=== PATIENT | female | born 1960 | race Caucasian/White ===

== ENCOUNTER 2016-05-25 08:38 | Emergency (ER) | payer BC ==
[2016-05-25 09:03] VITALS: PULSE 76; O2SAT 99
[2016-05-25] MEDS ORDERED: Phenergan 25 MG INJ IM ONE (09:12)
[2016-05-25] MEDS ORDERED: DEMEROL 75 MG IM ONE (09:12)
--- NOTE | 2016-05-25 09:18 | ERPHSYRPT ---
- History of Present Illness Time Seen by Provider: 05/25/16 09:00 Source: patient Exam Limitations: clinical condition Patient Subjective Stated Complaint: lt leg pain Triage Nursing Assessment: lt leg pain for 11 days. unsure of injury although she had her 'back doug when she stepped off a curb during her walk'. states pain is in her mid lt leg and radiates down to below knee and up to lt groin and around to lt lower back. no swelling or bruising. states 'feels like nerve pain' scheduled for PT tomorrow. pedal pulses present Physician History: PATIENT WITH HISTORY OF CHRONIC PAIN, POST LUMBAR LAMINECTOMY IN THE , HAS INCREASING PAIN DISCOMFORT PAST 3 DAYS WITH RADIATION OF LOWER BACK DOWN THE FRONT OF LEFT THIGH. DENIES WEAKNESS IN EXTREMITIES , LOSS OF BOWEL OR BLADDER FUNCTION. Timing/Duration: day(s) Method of Injury: unknown Quality: sharp Back Pain Location: lumbar spine Back Pain Radiation: upper legs Severity of Pain-Max: moderate Severity of Pain-Current: moderate Modifying Factors: Improves With: movement Associated Symptoms: other (NUMBNESS LEFT THIGH) Previous symptoms: same symptoms as today Allergies/Adverse Reactions: morphine Adverse Reaction (Verified 05/25/16 09:03) Home Medications: Levothyroxine Sodium 75 Mcg [Synthroid 75 Mcg] 75 mcg PO DAILY 05/25/16 [ History] Lisinopril 10 mg [Zestril 10 MG] 10 mg PO DAILY 05/25/16 [History] Methocarbamol [Robaxin-750] 750 mg PO DAILY 05/25/16 [History] Omeprazole [Prilosec] 40 mg PO DAILY 05/25/16 [History] Rosuvastatin Calcium [Crestor] 20 mg PO HS 05/25/16 [History] Venlafaxine HCl ER 37.5 mg [Effexor ER 37.5 MG] 37.5 mg PO DAILY 05/25/16 [History] Verapamil HCl [Verapamil ER] 180 mg PO HS 05/25/16 [History] Hx Tetanus, Diphtheria Vaccination/Date Given: Yes Hx Influenza Vaccination/Date Given: Yes Hx Pneumococcal Vaccination/Date Given: No Immunizations Up to Date: Yes - Review of Systems Constitutional: No Fever, No Chills Eyes: No Symptoms Ears, Nose, & Throat: No Symptoms Respiratory: No Cough, No Dyspnea Cardiac: No Chest Pain, No Edema, No Syncope Abdominal/Gastrointestinal: Appetite Changes, No Abdominal Pain, No Nausea, No Vomiting, No Diarrhea Genitourinary Symptoms: No Dysuria Musculoskeletal: Back Pain, No Neck Pain Skin: No Rash Neurological: Parasthesia, No Dizziness, No Focal Weakness, No Sensory Changes Psychological: No Symptoms Endocrine: No Symptoms All Other Systems: Reviewed and Negative - Past Medical History Pertinent Past Medical History: Yes Cardiac History: High Cholesterol, Hypertension Endocrine Medical History: Diabetes Type II GI Medical History: GERD Female Reproductive Disorders: Fibroids Other Medical History: 1994--misscarriage - Past Surgical History Past Surgical History: Yes Other Surgical History: mulitple abd surgeries for fibroid tumors. lami. tonsils - Social History Smoking Status: Never smoker Exposure to second hand smoke: No Drug Use: none Patient Lives Alone: No - Nursing Vital Signs Temperature: 97.9 F Temperature Source: Oral Pulse Rate: 76 Respiratory Rate: 18 Pain Intensity: 8 - Physical Exam General Appearance: no apparent distress, alert Eye Exam: PERRL/EOMI, eyes nml inspection Neck Exam: normal inspection, non-tender, supple, full range of motion, No meningismus, No midline tenderness Respiratory Exam: normal breath sounds, lungs clear, No respiratory distress Cardiovascular Exam: regular rate/rhythm, normal heart sounds Gastrointestinal Exam: soft, No tenderness, No mass Back Exam: normal inspection, vertebral tenderness (LEFT PARASPINAL LUMBAR TENDERNESS L1-L5), decreased range of motion Extremity Exam: normal inspection, normal range of motion, No calf tenderness, No pedal edema Peripheral Pulses: carotid (R): 2+, carotid (L): 2+, femoral (R): 2+, femoral (L ): 2+, dorsalis-pedis (R): 2+, dorsalis-pedis (L): 2+ Neurologic Exam: alert, oriented x 3, cooperative, 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, normal mood/affect, nml station & gait, sensation nml, No motor deficits Skin Exam: normal color, warm, dry, No rash SpO2 Interpretation: normal SpO2: 99 Oxygen Delivery: Room Air Ordered Tests: Active Orders 24 hr Category Date Time Status Clean Catch Urine Specimen STAT Care 05/25/16 09:10 Active UA Stat Lab 05/25/16 09:32 Ordered Medication Summary Discontinued Medications Generic Name Dose Route Start Last Admin Trade Name Kirsten PRN Reason Stop Dose Admin Meperidine HCl 75 mg 05/25/16 09:12 05/25/16 09:33 Demerol 75 Mg IM 05/25/16 09:13 75 mg STAT ONE Administration Meperidine HCl Confirm 05/25/16 09:32 Demerol 50 Mg Administered 05/25/16 09:33 Dose 100 mg .ROUTE .STK-MED ONE Promethazine HCl 25 mg 05/25/16 09:12 05/25/16 09:35 Phenergan 25 Mg Inj IM 05/25/16 09:13 25 mg STAT ONE Administration Promethazine HCl Confirm 05/25/16 09:31 Phenergan 25 Mg Inj Administered 05/25/16 09:32 Dose 25 mg .ROUTE .STK-MED ONE - Progress Progress: improved Progress Note: 05/25/16 09:18 DEMEROL 75MG/PHENERGAN 25MG IM Counseled pt/family regarding: lab results, diagnosis, need for follow-up - Departure Time of Disposition: 10:10 Departure Disposition: Home Clinical Impression: CHRONIC BACK PAIN/SCIATICA Condition: Stable Critical Care Time: No Referrals: DINA SPRAGUE [Primary Care Provider] - Additional Instructions: NORCO 10/325 EVERY 4 HOURS FOR PAIN NEEDED. VALIUM 5MG TWICE DAILY FOR MUSCLE SPASMS. CONSULT YOUR FAMILY PHYSICIAN FOR EVALUATION IN 1 WEEK. Prescriptions: Hydrocodone/APAP 10/325 mg [[place] 10/325 MG Tablet] 1 tab PO Q4H PRN PRN # 15 tablet PRN Reason: Pain Diazepam 5 mg [Valium 5 MG] 5 mg PO BIDPRN PRN #10 tablet PRN Reason: Muscle Spasms
[2016-05-25] MEDS ORDERED: Phenergan 25 MG INJ ONE (09:31)
[2016-05-25] MEDS ORDERED: DEMEROL 50 MG ONE (09:32)
[2016-05-25 10:04] LABS: Collection Type CLEAN CATCH
[2016-05-25 10:05] LABS: COMPLETE URINE MICROSCOPIC? YES
[2016-05-25 10:09] VITALS: BP 140/62
[2016-05-25 10:27] LABS: Bacteria FEW /HPF (NEGATIVE); Epithelial Cells FEW /HPF (FEW)
== END 2016-05-25 10:25 | disposition home or self-care (01) ==
LOC: ED 08:38
DX: M54.9 Dorsalgia, unspecified (principal); G89.29 Other chronic pain; M54.30 Sciatica, unspecified side; E78.00 Pure hypercholesterolemia, unspecified; I10 Essential (primary) hypertension; E11.8 Type 2 diabetes mellitus with unspecified complications; Z79.899 Other long term (current) drug therapy
CPT/HCPCS: 81000; 96372; 99284; J2175; J2550

== ENCOUNTER 2017-07-18 16:31 | Emergency (ER) | payer BC ==
[2017-07-18] MEDS ORDERED: DILAUDID 2 MG INJECTION IV ONE (17:51)
[2017-07-18] MEDS ORDERED: Phenergan 25 MG INJ IM ONE (17:52)
[2017-07-18] MEDS ORDERED: DILAUDID 2 MG INJECTION IM ONE (18:01)
[2017-07-18] MEDS ORDERED: DILAUDID 2 MG INJECTION ONE (18:04)
[2017-07-18] MEDS ORDERED: Phenergan 25 MG INJ ONE (18:04)
[2017-07-18 19:13] LABS: Appearance CLEAR (CLEAR); Bilirubin NEGATIVE (NEGATIVE); Blood NEGATIVE Ery/ul (0-5); Glucose NEGATIVE (NEGATIVE); Ketones NEGATIVE (NEGATIVE); Leukocyte Esterase 1+ (NEGATIVE); Nitrite NEGATIVE (NEGATIVE); Protein,Urine Dip NEGATIVE (Negative); Specific Gravity 1.025 (1.005-1.025); Urobilinogen NORMAL mg/dL (0-1)
--- NOTE | 2017-07-18 19:13 | ERPHSYRPT ---
- History of Present Illness Time Seen by Provider: 07/18/17 17:35 Source: patient Exam Limitations: clinical condition Patient Subjective Stated Complaint: Back Pain, Hx of complaint. Denies new injury. Triage Nursing Assessment: Pt presents to the ED with complaints of back pain, worse with movement. Pt states no new injury. No distress noted at this time. Pt states "this is my normal back spasm but pain is a little worse." Physician History: PATIENT WITH A HISTORY OF CHRONIC LOW BACK PAIN, DEGENERATIVE DISC DISEASE WITH SCIATICA, PREVIOUS LUMBAR SURGERY , COMPLAINS OF INCREASING LOW BACK PAIN X 3-4 DAYS. DENIES HEAVY LIFTING, TRAUMA, LOSS OF BOWEL OR BLADDER DYSFUNCTION. Timing/Duration: day(s) Method of Injury: unknown Quality: sharp, throbbing Back Pain Location: lumbar spine Back Pain Radiation: buttocks Severity of Pain-Max: severe Severity of Pain-Current: severe Associated Symptoms: lower back pain Previous symptoms: same symptoms as today Allergies/Adverse Reactions: morphine Adverse Reaction (Verified 05/25/16 09:03) Home Medications: Levothyroxine Sodium 75 Mcg [Synthroid 75 Mcg] 75 mcg PO DAILY 05/25/16 [ History] Lisinopril 10 mg [Zestril 10 MG] 5 mg PO DAILY 05/25/16 [History] Methocarbamol [Robaxin-750] 750 mg PO DAILY 05/25/16 [History] Omeprazole [Prilosec] 40 mg PO DAILY 05/25/16 [History] Venlafaxine HCl ER 37.5 mg [Effexor ER 37.5 MG] 37.5 mg PO DAILY 05/25/16 [History] Verapamil HCl [Verapamil ER] 180 mg PO HS 05/25/16 [History] Ibuprofen [IBUPROFEN 400 MG TABLET] 2 tablet PO Q6HPRN PRN 07/18/17 [History] Hx Tetanus, Diphtheria Vaccination/Date Given: No Hx Influenza Vaccination/Date Given: Yes Hx Pneumococcal Vaccination/Date Given: No Immunizations Up to Date: No - Review of Systems Constitutional: No Fever, No Chills Eyes: No Symptoms Ears, Nose, & Throat: No Symptoms Respiratory: No Cough, No Dyspnea Cardiac: No Chest Pain, No Edema, No Syncope Abdominal/Gastrointestinal: No Symptoms, No Abdominal Pain, No Nausea, No Vomiting, No Diarrhea Genitourinary Symptoms: No Dysuria Musculoskeletal: No Back Pain, No Neck Pain Skin: No Rash Neurological: No Dizziness, No Focal Weakness, No Sensory Changes Psychological: No Symptoms Endocrine: No Symptoms All Other Systems: Reviewed and Negative - Past Medical History Pertinent Past Medical History: Yes Cardiac History: High Cholesterol, Hypertension Endocrine Medical History: Diabetes Type II GI Medical History: GERD Female Reproductive Disorders: Fibroids Other Medical History: 1994--misscarriage - Past Surgical History Past Surgical History: Yes Other Surgical History: mulitple abd surgeries for fibroid tumors. lami. tonsils - Social History Smoking Status: Never smoker Exposure to second hand smoke: No Drug Use: none Patient Lives Alone: No - Female History Hx Now: No - Nursing Vital Signs Nursing Vital Signs: Initial Vital Signs Temperature 98.3 F 07/18/17 17:17 Pulse Rate 73 07/18/17 17:17 Respiratory Rate 16 07/18/17 17:17 Blood Pressure 134/92 07/18/17 17:17 O2 Sat by Pulse Oximetry 98 07/18/17 17:17 Pain Scale Pain Intensity 4 - Physical Exam General Appearance: no apparent distress, alert Eye Exam: PERRL/EOMI, eyes nml inspection Neck Exam: normal inspection, non-tender, supple, full range of motion, No meningismus, No midline tenderness Respiratory Exam: normal breath sounds, lungs clear, No respiratory distress Cardiovascular Exam: regular rate/rhythm, normal heart sounds Gastrointestinal Exam: soft, No tenderness, No mass Back Exam: normal inspection, vertebral tenderness (L2-L5, NO CVA TENDERNESS OR CVA TENDERNESS), decreased range of motion, point tenderness Extremity Exam: normal inspection, normal range of motion, No calf tenderness, No pedal edema Peripheral Pulses: carotid (R): 2+, carotid (L): 2+, femoral (R): 2+, femoral (L ): 2+ Neurologic Exam: alert, oriented x 3, cooperative, 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, normal mood/affect, nml station & gait, sensation nml, No motor deficits Skin Exam: normal color, warm, dry, No rash SpO2: 98 Oxygen Delivery: Room Air Ordered Tests: Active Orders 24 hr Category Date Time Status CULTURE,URINE Stat Lab 07/18/17 18:37 Received UA W/ MICROSCOPIC Stat Lab 07/18/17 18:37 Completed Medication Summary Discontinued Medications Generic Name Dose Route Start Last Admin Trade Name Kirsten PRN Reason Stop Dose Admin Hydromorphone HCl 2 mg 07/18/17 17:51 07/18/17 17:59 Dilaudid 2 Mg Injection IV 07/18/17 17:52 Not Given STAT ONE Hydromorphone HCl 2 mg 07/18/17 18:01 07/18/17 18:06 Dilaudid 2 Mg Injection IM 07/18/17 18:02 2 mg Q4H PRN ONE Administration Hydromorphone HCl Confirm 07/18/17 18:04 Dilaudid 2 Mg Injection Administered 07/18/17 18:05 Dose 2 mg .ROUTE .STK-MED ONE Promethazine HCl 12.5 mg 07/18/17 17:52 07/18/17 18:06 Phenergan 25 Mg Inj IM 07/18/17 17:53 12.5 mg STAT ONE Administration Promethazine HCl Confirm 07/18/17 18:04 Phenergan 25 Mg Inj Administered 07/18/17 18:05 Dose 25 mg .ROUTE .STK-MED ONE Trimethoprim/Sulfamethoxazole 1 tab 07/18/17 19:20 Bactrim Ds Tablet PO 07/18/17 19:21 STAT STA Lab/Rad Data: Laboratory Results 07/18/17 Range/Units 18:37 Ur Collection Type CCMS Urine Color DARK YELLOW (YELLOW) Urine Appearance CLEAR (CLEAR) Urine pH 5.0 (5-6) Ur Specific [place] 1.025 (1.005-1.025) Urine Protein NEGATIVE (Negative) Urine Ketones NEGATIVE (NEGATIVE) Urine Blood NEGATIVE (0-5) Giovanny/ul Urine Nitrite NEGATIVE (NEGATIVE) Urine Bilirubin NEGATIVE (NEGATIVE) Urine Urobilinogen NORMAL (0-1) mg/dL Ur Leukocyte Esterase 1+ (NEGATIVE) Urine Microscopic WBC 15-25 (0-5) /HPF Ur Epithelial Cells FEW (FEW) /HPF Urine Bacteria RARE (NEGATIVE) /HPF Urine Mucus SLIGHT (NEGATIVE) /HPF Urine Culture Reflexed YES (NO) Urine Glucose NEGATIVE (NEGATIVE) mg/dL Specimen Received 07-18-17 1900 - Progress Progress: improved Progress Note: 07/18/17 19:14 DILAUDID 2MG/PHENERGAN 12.5MG IM Counseled pt/family regarding: lab results, diagnosis, need for follow-up - Departure Time of Disposition: 19:20 Departure Disposition: Home Clinical Impression: Acute exacerbation of chronic low back pain, URINARY TRACT INFECTION Condition: Stable Critical Care Time: No Referrals: DINA SPRAGUE [Primary Care Provider] - Additional Instructions: CONSULT YOUR PRIMARY CARE PROVIDER FOR EVALUATION, TREATMENT AND REFERRAL TO PAIN CLINIC. ANTIBIOTIC BACTRIM DS TWICE DAILY FOR 10 DAYS. PERCOGESIC 1 TABLET EVERY 4 HOURS NEEDED FOR PAIN. Prescriptions: Acetaminophen/Diphenhydramine [Percogesic Extra Str Cap[place]] 1 each PO Q4-6HPRN PRN 3 Days #15 tablet PRN Reason: Pain Smz/Tmp Ds Tablet [Bactrim Ds Tablet] 1 udtab PO BID #20 tablet
[2017-07-18 19:14] LABS: Bacteria RARE /HPF (NEGATIVE); Epithelial Cells FEW /HPF (FEW); Mucus SLIGHT /HPF (NEGATIVE); WBC 15-25 /HPF (0-5)
[2017-07-18] MEDS ORDERED: BACTRIM DS TABLET PO STA (19:20)
[2017-07-18] MEDS ORDERED: BACTRIM DS TABLET PO ONE (19:22)
[2017-07-18 19:26] VITALS: BP 144/80; PULSE 74; O2SAT 97
== END 2017-07-18 19:40 | disposition home or self-care (01) ==
LOC: ED 16:31
DX: M54.5 Low back pain (principal); N39.0 Urinary tract infection, site not specified; Z79.899 Other long term (current) drug therapy
CPT/HCPCS: 81000; 87086; 96372; 99284; J1170; J2550; A9270-GY

== ENCOUNTER 2017-12-20 06:13 | Day surgery (SDC) | payer BC ==
[2017-12-20] MEDS ORDERED: DIPRIVAN 200 MG/20 ML IV ONE (06:14)
[2017-12-20] MEDS ORDERED: Lactated Ringers 1,000 ML IV SCH (06:30)
[2017-12-20] MEDS ORDERED: GlucaGen 1 MG ONE (10:14)
[2017-12-20 11:19] VITALS: BP 132/75; PULSE 62; O2SAT 100
--- NOTE | 2017-12-20 11:28 | OP ---
SURGERY DATE/TIME: 12/20/2017 1002 PREOPERATIVE DIAGNOSIS: Previous history of atypical sessile polyp. POSTOPERATIVE DIAGNOSIS: Two polyps splenic flexure. PROCEDURE: Colonoscopy complete to cecum with hot polypectomy x2, one jar. SURGEON: Trever Mckee M.D. ANESTHESIA: MAC. COMPLICATIONS: None. CONDITION: Stable. INDICATION: The patient requiring evaluation. She had atypical polypectomy about three years ago. She had a follow up exam about a year later that was satisfactory. She is now over three years. DESCRIPTION OF PROCEDURE: She is taken to endoscopy. Left lateral decubitus position. Anal digital exam is satisfactory. MAC sedation provided. Good anesthesia level present. Scope introduced. Colon was very wide. She had lost about 60 pounds. Very wide diameter, very redundant and very meandering. Base of the cecum, ascending, hepatic, transverse, splenic. In the splenic there were two - 1 cm polyps with a 1 cm bridge in between. They were both taken and submitted in one jar with hot biopsy forceps. Descending, sigmoid, rectum, anus satisfactory. The patient tolerated the procedure satisfactorily. PLAN: Follow up in three years.
== END 2017-12-20 11:32 | disposition home or self-care (01) ==
LOC: SDC 06:13
PROVIDERS: ATTEND Surgery
DX: K63.5 Polyp of colon (principal); Z86.010 Personal history of colon polyps; E11.9 Type 2 diabetes mellitus without complications; Z79.4 Long term (current) use of insulin
CPT/HCPCS: 82962; 88305; 94250; J1610; J2704

== ENCOUNTER 2020-11-24 16:39 | Emergency (ER) | payer BC ==
[2020-11-24] MEDS ORDERED: Sodium Chloride 0.9% 1000 ML 1,000 ML IV STA (16:52)
[2020-11-24] MEDS ORDERED: Sodium Chloride 0.9% 1000 ML 1,000 ML ONE (17:32)
[2020-11-24 17:39] LABS: Hematocrit 32.8 % (35-47); Hemoglobin 10.9 gm/dl (12.0-16.0); Mean Cell Volume 85.6 fl (78-100); Mean Corpuscular Hemoglobin 28.5 pg (26-32); Mean Corpuscular Hgb Concent. 33.2 g/dl (32-36); Platelet Count 251 K/mm3 (150-450); Red Blood Count 3.83 M/mm3 (4.1-5.4); Red Cell Distribution Width 13.8 % (11.5-14.0); White Blood Count 6.7 K/mm3 (4.0-10.5)
[2020-11-24 17:47] LABS: INR 1.15 (0.8-3.0); PROTIME 13.6 SECONDS (9.4-12.5)
[2020-11-24 17:50] LABS: PTT 78.2 SECONDS (25.1-36.5)
[2020-11-24 18:00] LABS: ALBUMIN 4.3 g/dL (3.5-5.0); ALKALINE PHOSPHATASE 49 U/L (38-126); ANION GAP 14.4 MEQ/L (5-15); BLOOD UREA NITROGEN 12 mg/dL (7-17); CHLORIDE 105 mmol/L (98-107); Calcium 9.1 mg/dL (8.4-10.2); Carbon Dioxide 26 mmol/L (22-30); Creatinine 1 0.63 mg/dL (0.52-1.04); EST GLOMERULAR FILTRATION RATE > 60.0 ML/MIN; Glucose 129 mg/dL (74-106); NT PRO BNP 41.2 pg/mL (0-900); Potassium 3.6 mmol/L (3.5-5.1); SGOT/AST 42 U/L (14-36); SGPT/ALT 50 U/L (0-35); SODIUM 143 mmol/L (137-145); Total Protein 7.3 g/dL (6.3-8.2)
--- NOTE | 2020-11-24 18:50 | ERPHSYRPT ---
- History of Present Illness Source: patient Exam Limitations: no limitations Patient Subjective Stated Complaint: "spit up blood from my sinuses" Triage Nursing Assessment: pt to ED c/o spitting up blood on few occasions. was sent to ED by PCP to r/o PE. "It came out of my head but she wants to make sure it didnt come from my lungs. It was kind of a lot and clotty but I didn't cough it up." denies pain or SOB. Timing/Duration: yesterday Cough Quality/Degree: blood streaked sputum Possible Cause: occasional episodes Modifying Factors: Improves With: nothing Associated Symptoms: cough Hx Tetanus, Diphtheria Vaccination/Date Given: No Hx Influenza Vaccination/Date Given: Yes Hx Pneumococcal Vaccination/Date Given: No Immunizations Up to Date: No <TYRON JOAQUIN - Last Filed: 11/24/20 18:58> <SONA DORSEY - Last Filed: 11/24/20 20:30> - History of Present Illness Time Seen by Provider: 11/24/20 16:55 Physician History: Patient is a 60-year-old white female who was diagnosed with Covid on November 17 approximately week ago who had been coughing up some blood. She feels it is coming from her sinuses and she is nearly done with her quarantine. She has had no's GI symptoms no respiratory symptoms the PCP was concerned however about a possible pulmonary embolus. (TYRON JOAQUIN) Allergies/Adverse Reactions: morphine Adverse Reaction (Mild, Verified 11/24/20 16:55) Itching Home Medications: Levothyroxine Sodium 75 Mcg [Synthroid 75 Mcg] 75 mcg PO DAILY 05/25/16 [History] Lisinopril 10 mg [Zestril 10 MG] 5 mg PO DAILY 05/25/16 [History] Omeprazole [Prilosec] 40 mg PO DAILY 05/25/16 [History] Verapamil HCl [Verapamil ER] 180 mg PO HS 05/25/16 [History] Cholecalciferol (Vitamin D3) [Vitamin D] 400 unit PO WEEKLY 12/10/17 [History] Duloxetine HCl 30 mg [Cymbalta 30 MG Capsule] 60 mg PO DAILY 12/10/17 [History] Magnesium Oxide 400 mg [Mag-Ox 400] 400 mg PO DAILY 12/10/17 [History] Metformin HCl 500 mg [Glucophage 500 MG] 500 mg PO DAILY 12/10/17 [History] Miscellaneous Medication Order 20 drops PO BID 12/10/17 [History] Travel Risk - International Travel Have you traveled outside of the country in past 3 weeks: No - Coronavirus Screening Are you exhibiting any of the following symptoms?: Yes Symptoms: Loss of Taste or Smell, Headaches/Body Aches/Fatigue Close contact with a COVID-19 positive Pt in past 14-21 Days: No - Vaccine Status Have you recieved a Covid-19 vaccination: No <TYRON JOAQUIN - Last Filed: 11/24/20 18:58> - Review of Systems Constitutional: No Fever, No Chills Eyes: No Symptoms Ears, Nose, & Throat: No Symptoms Respiratory: No Cough, No Dyspnea Cardiac: No Chest Pain, No Edema, No Syncope Abdominal/Gastrointestinal: No Abdominal Pain, No Nausea, No Vomiting, No Diarrhea Genitourinary Symptoms: No Dysuria Musculoskeletal: No Back Pain, No Neck Pain Skin: No Rash Neurological: No Dizziness, No Focal Weakness, No Sensory Changes Psychological: No Symptoms Endocrine: No Symptoms All Other Systems: Reviewed and Negative <TYRON JOAQUIN - Last Filed: 11/24/20 18:58> - Past Medical History Pertinent Past Medical History: Yes Neurological History: Other ENT History: No Pertinent History Cardiac History: Hypertension Respiratory History: Sleep Apnea Endocrine Medical History: Diabetes Type II, Hypothyroidism Musculoskeletal History: Other GI Medical History: GERD History: No Pertinent History Psycho-Social History: No Pertinent History Female Reproductive Disorders: Fibroids Other Medical History: LAMINECTOMY A TEENAGER (1982) - Past Surgical History Past Surgical History: Yes Neuro Surgical History: No Pertinent History Cardiac: No Pertinent History Respiratory: No Pertinent History Musculoskeletal: Other Female Surgical History: Hysterectomy, Other Other Surgical History: mulitple abd surgeries for fibroid tumors. lami. tonsils,tubal ,lesions removed from foot, ingroin toe nail. - Social History Smoking Status: Never smoker Exposure to second hand smoke: No Drug Use: none Patient Lives Alone: No <TYRON JOAQUIN - Last Filed: 11/24/20 18:58> - Physical Exam General Appearance: mild distress Eye Exam: PERRL/EOMI, eyes nml inspection Ears, Nose, Throat Exam: normal ENT inspection, TMs normal, pharynx normal, moist mucous membranes Neck Exam: normal inspection, non-tender, supple, full range of motion Respiratory Exam: normal breath sounds, lungs clear, No respiratory distress Cardiovascular Exam: regular rate/rhythm, normal heart sounds Gastrointestinal/Abdomen Exam: soft, No tenderness Pelvic Exam: not done Rectal Exam: deferred Back Exam: normal inspection, No CVA tenderness, No vertebral tenderness Extremity Exam: normal inspection, normal range of motion Neurologic Exam: alert, oriented x 3, cooperative, normal mood/affect, sensation nml, No motor deficits Skin Exam: normal color, warm, dry, No rash SpO2 Interpretation: normal SpO2: 97 O2 Delivery: Room Air <TYRON JOAQUIN - Last Filed: 11/24/20 18:58> - Nursing Vital Signs Nursing Vital Signs: Initial Vital Signs Temperature 97.6 F 11/24/20 16:45 Pulse Rate 83 11/24/20 16:45 Respiratory Rate 18 11/24/20 16:45 Blood Pressure 148/92 11/24/20 16:45 O2 Sat by Pulse Oximetry 97 11/24/20 16:45 Pain Scale Pain Intensity 0 - Course Nursing assessment & vital signs reviewed: Yes EKG Interpreted by Me: RATE (73), Sinus Rhythm, NORMAL AXIS, NORMAL INTERVALS, NORMAL QRS <TYRON JOAQUIN - Last Filed: 11/24/20 18:58> - CT Exams Chest CT Interpretation: Tele-radiologist Report (No comps. Negative PE. Mild diffuse bilateral peripheral airspace disease favors Covid pneumonia. Fatty liver and 13 cm splenomegaly.) <SONA DORSEY - Last Filed: 11/24/20 20:30> Ordered Tests: Active Orders 24 hr Category Date Time Status EKG-ER Only STAT Care 11/24/20 16:52 Active CHEST WITH CONTRAST [CT] Stat Exams 11/24/20 16:54 Taken CBC W DIFF Stat Lab 11/24/20 17:30 Completed CMP Stat Lab 11/24/20 17:30 Completed D-DIMER QUANTITATIVE Stat Lab 11/24/20 17:30 Completed Manual Differential NC Stat Lab 11/24/20 17:30 Completed NT PRO BNP Stat Lab 11/24/20 17:30 Completed PROTIME WITH INR Stat Lab 11/24/20 17:30 Completed PTT Stat Lab 11/24/20 17:30 Completed TROPONIN Q3H Lab 11/24/20 17:30 Completed TROPONIN Q3H Lab 11/24/20 20:00 Ordered TROPONIN Q3H Lab 11/24/20 23:00 Ordered TROPONIN Q3H Lab 11/25/20 02:00 Ordered TROPONIN Q3H Lab 11/25/20 05:00 Ordered Medication Summary Discontinued Medications Generic Name Dose Route Start Last Admin Trade Name Flacoq PRN Reason Stop Dose Admin Dexamethasone Sodium Phosphate 8 mg 11/24/20 19:51 11/24/20 20:08 Decadron 10mg Inj. IV 11/24/20 19:52 8 mg STAT ONE Administration Dexamethasone Sodium Phosphate Confirm 11/24/20 20:03 Decadron 10mg Inj. Administered 11/24/20 20:04 Dose 10 mg .ROUTE .STK-MED ONE Sodium Chloride 1,000 mls @ 999 mls/hr 11/24/20 16:52 11/24/20 19:41 Sodium Chloride 0.9% 1000 Ml IV 11/24/20 17:52 Infused .Q1H1M STA Infusion Sodium Chloride Confirm 11/24/20 17:32 Sodium Chloride 0.9% 1000 Ml Administered 11/24/20 17:33 Dose 1,000 mls @ ud .ROUTE .STK-MED ONE Lab/Rad Data: Laboratory Result Diagrams 11/24/20 17:30 11/24/20 17:30 Laboratory Results 11/24/20 11/24/20 11/24/20 Range/Units 17:30 17:30 17:30 WBC (4.0-10.5) K/mm3 RBC (4.1-5.4) M/mm3 Hgb (12.0-16.0) gm/dl Hct (35-47) % MCV (78-100) fl MCH (26-32) pg MCHC (32-36) g/dl RDW (11.5-14.0) % Plt Count (150-450) K/mm3 MPV (7.5-11.0) fl Segmented Neutrophils (36.0-66.0) % Lymphocytes (Manual) (24-44) % Monocytes (Manual) (0.0-12.0) % Eosinophils (Manual) (0.00-3.0) % Platelet Estimate (NORMAL) RBC Morphology Macrocytosis PT 13.6 H (9.4-12.5) SECONDS INR 1.15 (0.8-3.0) APTT 78.2 H (25.1-36.5) SECONDS D-Dimer 319 (215-500) ng/mL Sodium 143 (137-145) mmol/L Potassium 3.6 (3.5-5.1) mmol/L Chloride 105 (98-107) mmol/L Carbon Dioxide 26 (22-30) mmol/L Anion Gap 14.4 (5-15) MEQ/L BUN 12 (7-17) mg/dL Creatinine 0.63 (0.52-1.04) mg/dL Estimated GFR > 60.0 ML/MIN Glucose 129 H (74-106) mg/dL Calcium 9.1 (8.4-10.2) mg/dL Total Bilirubin 0.70 (0.2-1.3) mg/dL AST 42 H (14-36) U/L ALT 50 H (0-35) U/L Alkaline Phosphatase 49 (38-126) U/L Troponin I < 0.012 (0.000-0.034) ng/mL NT-Pro-B Natriuret Pep 41.2 (0-900) pg/mL Serum Total Protein 7.3 (6.3-8.2) g/dL Albumin 4.3 (3.5-5.0) g/dL 11/24/20 Range/Units 17:30 WBC 6.7 (4.0-10.5) K/mm3 RBC 3.83 L (4.1-5.4) M/mm3 Hgb 10.9 L (12.0-16.0) gm/dl Hct 32.8 L (35-47) % MCV 85.6 (78-100) fl MCH 28.5 (26-32) pg MCHC 33.2 (32-36) g/dl RDW 13.8 (11.5-14.0) % Plt Count 251 (150-450) K/mm3 MPV 10.0 (7.5-11.0) fl Segmented Neutrophils 62 (36.0-66.0) % Lymphocytes (Manual) 33 (24-44) % Monocytes (Manual) 3 (0.0-12.0) % Eosinophils (Manual) 2 (0.00-3.0) % Platelet Estimate NORMAL (NORMAL) RBC Morphology ABNORMAL Macrocytosis 1+ PT (9.4-12.5) SECONDS INR (0.8-3.0) APTT (25.1-36.5) SECONDS D-Dimer (215-500) ng/mL Sodium (137-145) mmol/L Potassium (3.5-5.1) mmol/L Chloride (98-107) mmol/L Carbon Dioxide (22-30) mmol/L Anion Gap (5-15) MEQ/L BUN (7-17) mg/dL Creatinine (0.52-1.04) mg/dL Estimated GFR ML/MIN Glucose (74-106) mg/dL Calcium (8.4-10.2) mg/dL Total Bilirubin (0.2-1.3) mg/dL AST (14-36) U/L ALT (0-35) U/L Alkaline Phosphatase (38-126) U/L Troponin I (0.000-0.034) ng/mL NT-Pro-B Natriuret Pep (0-900) pg/mL Serum Total Protein (6.3-8.2) g/dL Albumin (3.5-5.0) g/dL - Progress Progress: unchanged Air Movement: good Blood Culture(s) Obtained: No Antibiotics given: No <TYRON JOAQUIN - Last Filed: 11/24/20 18:58> - Progress Counseled pt/family regarding: lab results, diagnosis, need for follow-up, rad results <SONA DORSEY - Last Filed: 11/24/20 20:30> - Progress Progress Note: Patient reassessed. CT scan chest was ordered by Dr. Joaquin. No PE observed. However there is CT scan findings of Covid pneumonia. Patient is known to be Covid positive. Patient denies shortness of breath. Actually patient states she feels much better now than she did previously. The spitting up blood is actually sinus mucus. There is no hemoptysis. No hematemesis. Patient states her nasal mucus is blood-tinged. 11/24/20 20:00 11/24/20 20:02 There appears to be a slight hemoglobin drop of approximately 2 g as compared to last CBC done a few months ago. This may need to be further investigated on an outpatient basis. Patient denies bleeding diathesis. (SONA DORSEY) - Departure Departure Disposition: Home Critical Care Time: No <TYRON JOAQUIN - Last Filed: 11/24/20 18:58> <SONA DORSEY - Last Filed: 11/24/20 20:30> - Departure Clinical Impression: Pneumonia due to COVID-19 virus, Splenomegaly, Fatty liver Condition: Stable Referrals: KATIUSKA CONTRERAS, CSR TECHNICIAN [Primary Care Provider] - Additional Instructions: Discharge/Care Plan PRESTON MONTANEZ was seen on 11/24/20 in the Emergency Room. The patient was counseled regarding Diagnosis,Lab results, Imaging studies, need for follow up and when to return to the Emergency Room. Prescriptions given: Discharge Note I have spoken with the patient and/or caregivers. I have explained the patient's condition, diagnosis and treatment plan based on the information available to me at this time. I have answered the patient's and/or caregiver's questions and addressed any concerns. The patient and/or caregivers have as good understanding of the patient's diagnosis, condition and treatment plan as can be expected at this point. The vital signs have been stable. The patient's condition is stable and appropriate for discharge from the emergency department. The patient will pursue further outpatient evaluation with the primary care physician or other designated or consulting physician as outlined in the discharge instructions. The patient and/or caregivers are agreeable to this plan of care and follow-up instructions have been explained in detail. The patient and/or caregivers have received these instruction. The patient/and or caregivers are aware that any significant change in condition or worsening of symptoms joaquin uld prompt an immediate return to this or the closest emergency department or call 911.
[2020-11-24] MEDS ORDERED: DECADRON 10MG INJ. IV ONE (19:51)
[2020-11-24] MEDS ORDERED: DECADRON 10MG INJ. ONE (20:03)
[2020-11-24 20:09] LABS: Eosinophil 2 % (0.00-3.0); Lymphocytes 33 % (24-44); Macrocytosis 1+; Monocyte 3 % (0.0-12.0); Neutrophils 62 % (36.0-66.0); Platelet Estimate NORMAL (NORMAL); Total Cells Counted 100
[2020-11-24 20:35] VITALS: BP 134/81; PULSE 72; O2SAT 97
--- NOTE | 2020-11-25 08:51 | XRAY ---
Indication: Hemoptysis. Congestion. Positive Covid 19. Multiple contiguous axial images obtained through the chest using 80 cc Isovue 370 contrast and PE protocol. Comparison: None There is adequate opacification of the pulmonary arteries. No pulmonary embolus. Heart not enlarged. Aorta is normal in course and caliber. No pathologic mediastinal/hilar lymphadenopathy. Small hiatal hernia. Lungs demonstrates mild diffuse peripheral groundglass airspace opacities and minimal bibasilar dependent atelectasis. No suspicious pulmonary mass/nodule or effusion. Bony thorax intact with mild/moderate degenerative changes throughout the spine. Limited upper abdomen demonstrates fatty liver and 13 cm splenomegaly. Impression: 1. Negative pulmonary embolus. 2. Diffuse bilateral peripheral groundglass airspace opacities. Commonly reported imaging features of Covid 19 pneumonia are present. Other processes such as influenza pneumonia and organizing pneumonia, as can be seen with drug toxicity and connective tissue disease, and causes similar imaging pattern. 3. Incidental small hiatal hernia, fatty liver, and splenomegaly.
== END 2020-11-24 20:49 | disposition home or self-care (01) ==
LOC: ED 16:39
DX: U07.1 COVID-19 (principal); R16.1 Splenomegaly, not elsewhere classified; I10 Essential (primary) hypertension; K76.0 Fatty (change of) liver, not elsewhere classified; Z79.899 Other long term (current) drug therapy
CPT/HCPCS: 36000; 36415; 71260; 80053; 83880; 84484; 85025; 85379; 85610; 85730; 93005; 96360; 96374; 99284; J1100

== ENCOUNTER 2022-10-26 08:43 | Day surgery (SDC) | payer BC ==
--- NOTE | 2022-10-24 15:11 | HP ---
DATE: 10/26/2022 HISTORY OF PRESENT ILLNESS: Patient is a 62 year-old female who presents for endoscopy. She is complaining of severe back spasms. She has an MRI scheduled. She does not have any colon complaints at this time. She had colonoscopy about 5 years ago. She had colon polyps. She has no family history of colon cancer. She takes omeprazole for some reflux. She does see a specialist for a fatty liver. It appears this person would like for her to have an EGD. 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 PAST MEDICAL HISTORY: Hyperlipidemia, hypertension, thyroid, diabetes, gastroesophageal reflux disease. CURRENT MEDICATIONS: Duloxetine, vitamin D, levothyroxine, losartan, metformin, methocarbamol, omeprazole, Ozempic, verapamil. ALLERGIES: MORPHINE. PAST SURGERIES: Cataract, hysterectomy, back surgery, tubal ligation. SOCIAL HISTORY: Negative. FAMILY HISTORY: Breast cancer, diabetes, hypertension. REVIEW OF SYSTEMS: CONSTITUTIONAL: Denies fever or chills. CHEST: Denies shortness of breath. CVS: No chest pain. ABDOMEN: Reports epigastric pain. PHYSICAL EXAMINATION: GENERAL: No acute distress. CHEST: Nonlabored. No shortness of breath. CVS: Regular rate and rhythm. ABDOMEN: Soft. IMPRESSION: 1. EPIGASTRIC PAIN. 2. HISTORY OF COLON POLYPS. 3. FATTY LIVER. 4. CHRISTENSEN'S. PLAN: EGD and colonoscopy with Dr. Trever Mckee. This report was dictated for Dr. Mckee by Leeanna Irvin NP.
[2022-10-26] MEDS ORDERED: Lactated Ringers 1,000 ML IV SCH (09:00)
[2022-10-26 09:36] VITALS: RESP 18
[2022-10-26] MEDS ORDERED: DIPRIVAN 200 MG/20 ML IV ONE ×3 (10:51→11:18)
[2022-10-26] MEDS ORDERED: Xylocaine-Mpf 2% 5 Ml Vial ONE (10:51)
[2022-10-26] MEDS ORDERED: Versed 2 MG/2 ML Injection ONE (10:59)
[2022-10-26] MEDS ORDERED: GlucaGen 1 MG ONE (11:17)
[2022-10-26 12:00] VITALS: TEMP 96.9; O2SAT 99
[2022-10-26 12:19] VITALS: BP 140/54; PULSE 74
--- NOTE | 2022-10-26 13:19 | OP ---
SURGERY DATE/TIME: 10/26/2022 1056 PREOPERATIVE DIAGNOSES: 1) Previous history of Alston's. No recent endoscopic exam. Some upper symptoms nausea and epigastric pain. 2) Follow up for polyps. POSTOPERATIVE DIAGNOSES: 1) Previous history of Alston's. No recent endoscopic exam. Some upper symptoms nausea and epigastric pain. 2) Follow up for polyps. 3) Moderate hemorrhoidal disease. PROCEDURES: 1) EGD with hot polypectomy x2 of two large polyps. 2) Colonoscopic examination complete to cecum with hot polypectomy of a 1 cm polyp in the descending colon. SURGEON: Trever Mckee M.D. ANESTHESIA: MAC. COMPLICATIONS: None. CONDITION: Stable. DESCRIPTION OF PROCEDURE: Patient was taken to endoscopy. Left lateral decubitus position. Scope introduced. Pharyngoesophageal junction normal. Esophagus normal down to gastroesophageal junction. There was no Alston's today. Fundus, body and antrum several polyps. There were some fairly large polyps. Two community relations representative ones were taken and biopsy submitted. Pylorus satisfactory. Duodenal bulb normal. Second portion normal. Scope looped upon itself normal. Scope withdrawn. Anal digital examination satisfactory. Satisfactory tone. The scope was advanced to the cecum. Base of the cecum, ileocecal valve, appendiceal orifice, ascending, hepatic, transverse, splenic, descending, in the distal descending a 1 cm polyp was taken to extinction. Sigmoid, rectum moderate hemorrhoids. The patient tolerated the procedure satisfactory. Polypectomy x1. Exam complete to cecum. Follow up five years.
== END 2022-10-26 12:30 | disposition home or self-care (01) ==
LOC: SDC 08:43
PROVIDERS: ATTEND Surgery
DX: Z09 Encounter for follow-up examination after completed treatment for conditions other than malignant neoplasm (principal); Z86.010 Personal history of colon polyps; Z87.19 Personal history of other diseases of the digestive system; K63.5 Polyp of colon; E11.9 Type 2 diabetes mellitus without complications; Z80.3 Family history of malignant neoplasm of breast; K64.9 Unspecified hemorrhoids
CPT/HCPCS: 82947; 93005; J1610; J2250; J2704

== ENCOUNTER 2023-02-14 10:23 | Day surgery (SDC) | payer BC ==
[2023-02-14] MEDS ORDERED: DIPRIVAN 200 MG/20 ML IV ONE (12:50)
--- NOTE | 2023-02-14 14:05 | XRAY ---
Indication: Right C2-C4 MBB. Intraoperative fluoroscopy provided for 23 seconds. 2 digital spot images submitted for interpretation demonstrates posterior needle tips projecting over the expected right C2-C4 nerve roots. Correlate with intraoperative findings/report.
[2023-02-14] MEDS ORDERED: Lactated Ringers 1,000 ML IV ONE (15:01)
--- NOTE | 2023-02-14 15:05 | XRAY ---
23 seconds of fluoroscopy was used in surgery for a right C2-C4 MBB.
== END 2023-02-14 13:20 | disposition home or self-care (01) ==
LOC: SDC-PAIN 10:23
PROVIDERS: ATTEND Psychiatry & Neurology Pain Medicine
DX: M47.812 Spondylosis without myelopathy or radiculopathy, cervical region (principal); E11.9 Type 2 diabetes mellitus without complications; Z79.899 Other long term (current) drug therapy
CPT/HCPCS: 64490; 64491; 72040; 77002; 82947; J2704

== ENCOUNTER 2023-03-14 09:09 | Day surgery (SDC) | payer BC ==
[2023-03-14] MEDS ORDERED: BUPIVACAINE 0.5% VIAL IJ ONE (09:10)
[2023-03-14] MEDS ORDERED: DIPRIVAN 200 MG/20 ML IV ONE (11:45)
--- NOTE | 2023-03-14 13:04 | XRAY ---
Indication: Right C2-C4 MBB. Intraoperative fluoroscopy provided for 22 seconds. 2 digital spot images submitted for interpretation demonstrates posterior needle tips projecting over the expected right C2-C4 nerve roots. Correlate with intraoperative findings/report.
--- NOTE | 2023-03-14 13:26 | XRAY ---
22 seconds of fluoroscopy was used in surgery for a right C2-C4 MBB.
[2023-03-14] MEDS ORDERED: Lactated Ringers 1,000 ML IV ONE (13:45)
== END 2023-03-14 12:14 | disposition home or self-care (01) ==
LOC: SDC-PAIN 09:09
PROVIDERS: ATTEND Psychiatry & Neurology Pain Medicine
DX: M47.812 Spondylosis without myelopathy or radiculopathy, cervical region (principal); E11.9 Type 2 diabetes mellitus without complications
CPT/HCPCS: 64490; 64491; 72040; 77002; 82947; J2704

== ENCOUNTER 2023-04-18 07:57 | Day surgery (SDC) | payer BC ==
[2023-04-18] MEDS ORDERED: BUPIVACAINE 0.5% VIAL IJ ONE (07:58)
[2023-04-18] MEDS ORDERED: XYLOCAINE-MPF 1% 5ML SDV IJ ONE (07:58)
[2023-04-18] MEDS ORDERED: Decadron 4 MG INJ IV ONE (07:58)
[2023-04-18] MEDS ORDERED: DIPRIVAN 200 MG/20 ML IV ONE (09:50)
--- NOTE | 2023-04-18 10:47 | XRAY ---
25 seconds of fluoroscopy was used in surgery for a right C2-C4 RFA.
--- NOTE | 2023-04-18 10:50 | XRAY ---
Indication: Right C2-C4 RFA. Intraoperative fluoroscopy provided for 25 seconds. 4 digital spot images submitted for interpretation demonstrates posterior needle tips projecting over the expected right C2-C4 nerve roots. Correlate with intraoperative findings/report.
[2023-04-18] MEDS ORDERED: Lactated Ringers 1,000 ML IV ONE (13:36)
== END 2023-04-18 10:20 | disposition home or self-care (01) ==
LOC: SDC-PAIN 07:57
PROVIDERS: ATTEND Psychiatry & Neurology Pain Medicine
DX: M47.812 Spondylosis without myelopathy or radiculopathy, cervical region (principal); E11.9 Type 2 diabetes mellitus without complications
CPT/HCPCS: 64633; 64634; 72040; 77002; 82947; J1100; J2704

== ENCOUNTER 2024-07-24 08:01 | Day surgery (SDC) | payer OTHER ==
--- NOTE | 2024-07-23 07:49 | HP ---
HISTORY AND PHYSICAL HISTORY OF PRESENT ILLNESS: The patient is a 64-year-old female who presents with complaints of rectal bleeding. She had a colonoscopy 3 years ago. She states her stools are more formed now. She did better with stool softeners but still having rectal bleeding. PAST MEDICAL HISTORY: Thyroid, diabetes, hypertension, heart disease. HOME MEDICATIONS: Multivitamins, oxycodone, rosuvastatin, hydroxyzine, Kerendia, losartan, omeprazole, verapamil, vitamin D, duloxetine, levothyroxine, Jardiance. ALLERGIES: Negative. PAST SURGICAL HISTORY: Cataract, back surgery, hysterectomy, , fibroid tumor removal. SOCIAL HISTORY: Negative. FAMILY HISTORY: Breast cancer, diabetes, heart disease. REVIEW OF SYSTEMS: CONSTITUTIONAL: Denies fever or chills. CHEST: Denies shortness of breath. CARDIOVASCULAR: Denies chest pain. ABDOMEN: Denies abdominal pain. PHYSICAL EXAMINATION: GENERAL: No acute distress. CARDIOVASCULAR: Regular rate and rhythm. RESPIRATORY: Nonlabored. No shortness of breath. ABDOMEN: Soft. IMPRESSION: Rectal bleeding. PLAN: Colonoscopy with Dr. Trever Mckee. This report was dictated for Dr. Mckee by Leeanna Irvin NP.
[2024-07-24] MEDS ORDERED: Lactated Ringers 1,000 ML IV ONE (08:17)
[2024-07-24] MEDS ORDERED: Lactated Ringers 1,000 ML IV SCH (08:30)
[2024-07-24 08:39] VITALS: RESP 18
[2024-07-24] MEDS ORDERED: propofoL IV ONE ×2 (09:51→10:12)
[2024-07-24] MEDS ORDERED: Versed 2 MG/2 ML Injection ONE (09:52)
[2024-07-24] MEDS ORDERED: GlucaGen 1 MG ONE (10:05)
[2024-07-24 10:53] VITALS: TEMP 97.2
[2024-07-24 11:12] VITALS: BP 114/68; PULSE 70; O2SAT 100
--- NOTE | 2024-07-27 22:50 | OP ---
SURGERY DATE/TIME: 07/24/2024 [id number] PREOPERATIVE DIAGNOSIS: Patient presents with blood per rectum and 3-year followup. POSTOPERATIVE DIAGNOSIS: Patient presents with blood per rectum and 3-year followup. PROCEDURES: Colonoscopy complete to cecum, hot polypectomy x1. SURGEON: Trever Mckee MD ANESTHESIA: General. COMPLICATIONS: None. CONDITION: Stable. DESCRIPTION OF PROCEDURE AND FINDINGS: Patient presents for a 3-year followup. Taken to endoscopy, left lateral decubitus position. Scope introduced. Anal tone was good. Anorectal area was satisfactory. She did have moderate internal hemorrhoids. Scope advanced to the cecum. The cecum, ileocecal valve, appendiceal orifice was satisfactory. Coming back, in the mid ascending was a 5 to 6 mm polyp taken with a hot biopsy forceps to extinction. Circumferential withdrawal. No additional lesions were noted other than moderate internal hemorrhoids. Patient tolerated procedure satisfactory. She was 3 years this time, we will move her out to 5 years on followup.
== END 2024-07-24 11:14 | disposition home or self-care (01) ==
LOC: SDC 08:01
PROVIDERS: ATTEND Surgery
DX: D12.2 Benign neoplasm of ascending colon (principal); K62.5 Hemorrhage of anus and rectum; E11.9 Type 2 diabetes mellitus without complications; Z80.3 Family history of malignant neoplasm of breast; K64.8 Other hemorrhoids
CPT/HCPCS: 82947; J1610; J2250; J2704

== ENCOUNTER 2024-12-10 15:52 | Day surgery (SDC) | payer OTHER ==
[2024-12-10] MEDS ORDERED: GELSYN-3 IU ONE (15:53)
[2024-12-10] MEDS ORDERED: LIDOCAINE HCL 1% 50 MG/5 ML VL IJ ONE (15:53)
--- NOTE | 2024-12-10 19:54 | XRAY ---
Indication: Left injection. Intraoperative fluoroscopy provided for 13 seconds. Single digital spot images submitted for interpretation demonstrates needle tip projecting over left femur intercondylar notch. Small amount of contrast injected for needle tip placement. Correlate with intraoperative findings/report.
--- NOTE | 2024-12-11 10:57 | XRAY ---
13 seconds of fluoroscopy used in surgery for a left intra-articular knee injection.
== END 2024-12-10 18:25 | disposition home or self-care (01) ==
LOC: SDC-PAIN 15:52
PROVIDERS: ATTEND Psychiatry & Neurology Pain Medicine
DX: M17.12 Unilateral primary osteoarthritis, left knee (principal); E11.9 Type 2 diabetes mellitus without complications

== ENCOUNTER 2024-12-24 16:10 | Day surgery (SDC) | payer OTHER ==
[2024-12-24] MEDS ORDERED: GELSYN-3 IU ONE (16:11)
[2024-12-24] MEDS ORDERED: LIDOCAINE HCL 1% 50 MG/5 ML VL IJ ONE (16:11)
--- NOTE | 2024-12-24 20:37 | XRAY ---
Indication: Left knee injection. Intraoperative fluoroscopy provided for 9 seconds. Single digital spot image submitted for interpretation demonstrates needle tip projecting over left femur intercondylar notch. Small amount of contrast injected for needle tip placement. Correlate with intraoperative findings/report.
--- NOTE | 2024-12-24 20:37 | XRAY ---
9 seconds of fluoroscopy were used in surgery for a left intra-articular knee injection.
== END 2024-12-24 19:34 | disposition home or self-care (01) ==
LOC: SDC-PAIN 16:10
PROVIDERS: ATTEND Psychiatry & Neurology Pain Medicine
DX: M17.12 Unilateral primary osteoarthritis, left knee (principal); E11.9 Type 2 diabetes mellitus without complications